=== PATIENT | female | born 1970 | race African-American/Black ===

== ENCOUNTER 2017-01-01 16:09 | Emergency (ER) | payer MEDICAID ==
[~2017-01-01] VITALS: Ht 162.6 cm; Wt 78.9 kg
[~2017-01-01 16:09] MED LIST: ALBUTEROL SULF8.5 GM INH; NORCO 5-325 TA1 EACH ORAL; PROMETHAZINE-C118 M1 ORAL
--- NOTE | 2017-01-01 16:41 | Emergency Room Report ---
History of Present Illness General Chief Complaint: Earache Source: Patient Present Illness HPI 46-year-old female presents to the emergency department complaining of cough, bilateral nasal congestion, left-sided ear pain which is 7/10 in severity with 7 /10 in severity sore throat x 2 days. Patient denies fevers or chills. Denies changes or loss of hearing, tinnitus, ear tenderness, or ear d/c. Patient presents with 2 grandchildren who were diagnosed with viral respiratory infection last week. She denies nausea, vomiting, neck pain or stiffness . Denies rashes or recent travel. Denies CP, Palpitations, LOC, AMS, dizziness, Changes in Vision, Sensation, paresthesias, or a sudden severe headache. Allergies: Coded Allergies: No Known Allergies (Unverified , 04/07/14) Patient History Past Medical History: see triage record Past Surgical History: none Pertinent Family History: none Last Menstrual Period: na Now: No Immunizations: UTD Reviewed Nursing Documentation: PMH: Agreed, PSxH: Agreed Nursing Documentation-PMH Past Medical History: No Stated History Review of Systems All Other Systems: negative except mentioned in HPI Physical Exam Vital Signs Date Time Temp Pulse Resp B/P (MAP) Pulse Ox O2 Delivery O2 Flow Rate FiO2 01/01/17 16:15 97.9 84 18 125/82 98 Room Air Sp02 EP Interpretation: reviewed, normal General Appearance: no apparent distress, alert, GCS 15, non-toxic Head: normocephalic, atraumatic Eyes: bilateral eye normal inspection, bilateral eye PERRL ENT: hearing grossly normal, no angioedema, normal voice, TMs + canals normal, uvula midline, moist mucus membranes, nasal congestion - bilaterally, other - cobble stone appearance to pharynx, no exudates. Neck: full range of motion, supple/symm/no masses Respiratory: chest non-tender, lungs clear, normal breath sounds, no rhonchi, no wheezing, speaking full sentences Cardiovascular #1: regular rate, rhythm, normal capillary refill Musculoskeletal: back normal, gait/station normal, normal range of motion, non- tender Neurologic: alert, oriented x3, responsive, motor strength/tone normal, sensory intact, speech normal Psychiatric: judgement/insight normal, memory normal, mood/affect normal Skin: normal color, no rash, warm/dry, well hydrated Lymphatic: no adenopathy Medical Decision Making PA Attestation Dr. Peña is my supervising Physician whom patient management has been discussed with. Diagnostic Impression: Primary Impression: URI (upper respiratory infection) Qualified Codes: J06.9 - Acute upper respiratory infection, unspecified; B97.89 - Other viral agents as the cause of diseases classified elsewhere Additional Impression: Nasal congestion ER Course 46-year-old female presents to the emergency department complaining of cough, bilateral nasal congestion, left-sided ear pain which is 7/10 in severity with 7 /10 in severity sore throat x 2 days. Patient denies fevers or chills. Denies changes or loss of hearing, tinnitus, ear tenderness, or ear d/c. Patient presents with 2 grandchildren who were diagnosed with viral respiratory infection last week. She denies nausea, vomiting, neck pain or stiffness . Denies rashes or recent travel. Denies CP, Palpitations, LOC, AMS, dizziness, Changes in Vision, Sensation, paresthesias, or a sudden severe headache. Ddx considered but are not limited to URI, pneumonia, PE, strep pharyngitis, meningitis. Vital signs: Pt. is afebrile, the remaining VS are WNL H&PE are most consistent with URI and nasal congestion - no evidence of bacterial infection ORDERS: none required at this time, the diagnosis is clinical ED INTERVENTIONS: None required at this time. --PT. EDUCATION: Discussed antibiotic resistance with inappropriate prescribing of antibiotics for viral illnesses. Discussed signs and symptoms to indicate viral illness versus bacterial illness. DISCHARGE: At this time pt. is stable for d/c to home. Will provide printed patient care instructions, and any necessary prescriptions. Care plan and follow up instructions have been discussed with the patient prior to discharge. Last Vital Signs Date Time Temp Pulse Resp B/P (MAP) Pulse Ox O2 Delivery O2 Flow Rate FiO2 01/01/17 16:15 97.9 84 18 125/82 98 Room Air Disposition: HOME, SELF-CARE Condition: Stable Scripts Acetaminophen* (TYLENOL EXTRA STRENGTH*) 500 Mg Tablet 500 MG ORAL Q6H, #20 TAB 0 Refills Prov: Lise Stacy P.A. 01/01/17 Oxymetazoline Hcl* (AFRIN*) 15 Ml Mist 2 SPRAYS NASAL TWICE A DAY for 3 Days, #15 ML 0 Refills Prov: StacyLise cohen 01/01/17 Patient Instructions: Upper Respiratory Infection, Adult Additional Instructions: Take medications as directed. Follow up with a Primary Care Provider in 3-5 days, even if your symptoms have resolved. --Please review list of primary care clinics, if you do not already have a primary care provider Return sooner to ED if new symptoms occur, or current symptoms become worse. - Please note that this Emergency Department Report was dictated using [employer] desktop support technician technology software, occasionally this can lead to erroneous entry secondary to interpretation by the dictation equipment. Lise Stacy Jan 01, 2017 16:41
[2017-01-01] MEDS ORDERED: TYLENOL EXTRA500 MG ORAL (17:01)
[2017-01-01] MEDS ORDERED: AFRIN15 ML NASAL (17:01)
[2017-01-01 17:22] VITALS: BP 103/69
== END 2017-01-01 17:22 | disposition home or self-care (01) ==
LOC: EMR 16:38
DX: J06.9 Acute upper respiratory infection, unspecified (principal); R09.81 Nasal congestion
CPT/HCPCS: 99284

== ENCOUNTER 2017-02-19 15:03 | Emergency (ER) | payer MEDICAID ==
[~2017-02-19] VITALS: Ht 162.6 cm; Wt 79.4 kg
[~2017-02-19 15:03] MED LIST changes: +AFRIN15 ML NASAL; +TYLENOL EXTRA500 MG ORAL
[2017-02-19 15:38] LABS: APPEARANCE,URINE CLOUDY; KETONES,URINE 1+ (NEGATIVE); LEUKOCYTE ESTERASE ,URINE 1+ (NEGATIVE); NITRITE,URINE NEGATIVE (NEGATIVE); PH,URINE 5 (4.5-8.0); PROTEIN,URINE 2+ (NEGATIVE); UROBILINOGEN,URINE NORMAL MG/DL (0.0-1.0)
[2017-02-19 16:12] LABS: BACTERIA,URINE FEW /HPF; SQUAMOUS EPITHELIAL CELL,UR MODERATE /LPF (NONE/OCC); WBC,URINE 0-2 /HPF (0 - 2)
[2017-02-19] MEDS ORDERED: METRONIDAZOLE500 MG ORAL (16:23)
[2017-02-19 16:24] VITALS: BP 122/74
[2017-02-19 16:35] VITALS: BP 120/66
--- NOTE | 2017-02-19 20:21 | Emergency Room Report ---
History of Present Illness General Chief Complaint: Female Urogenital Problems Source: Patient Present Illness [facility] The patient is a 46-year-old female presenting for vaginal discharge and foul odor for the past week. Described as a fishy odor. Discharge is a thin white discharge. She denies other symptoms including nausea, vomiting, fever, chills , dysuria, hematuria, abdominal pain Allergies: Coded Allergies: No Known Allergies (Unverified , 04/07/14) Patient History Past Medical History: see triage record Pertinent Family History: none Nursing Documentation-[facility] Past Medical History: No Stated History Review of Systems All Other Systems: negative except mentioned in HPI Physical Exam Vital Signs Date Time Temp Pulse Resp B/P (MAP) Pulse Ox O2 Delivery O2 Flow Rate FiO2 02/19/17 15:05 98.1 95 20 119/70 99 Room Air Sp02 EP Interpretation: reviewed, normal General Appearance: no apparent distress, alert, GCS 15, non-toxic Head: normocephalic, atraumatic Eyes: bilateral eye normal inspection, bilateral eye PERRL ENT: hearing grossly normal, normal pharynx, no angioedema, normal voice Gastrointestinal: normal bowel sounds, non tender, soft, non-distended, no guarding, no rebound Genitourinary: normal inspection, no CVA tenderness Musculoskeletal: back normal, gait/station normal, normal range of motion, non- tender Neurologic: alert, oriented x3, responsive, motor strength/tone normal, sensory intact, speech normal Psychiatric: judgement/insight normal, memory normal, mood/affect normal, no suicidal/homicidal ideation Skin: normal color, no rash, warm/dry, well hydrated Medical Decision Making PA Attestation Dr. Mcdowell is my supervising physician. Patient management was discussed with my supervising physician Diagnostic Impression: Primary Impression: Bacterial vaginosis ER Course The patient is a 46-year-old female presenting for vaginal discharge and foul odor for the past week. Described as a fishy odor. Discharge is a thin white discharge. She denies other symptoms including nausea, vomiting, fever, chills , dysuria, hematuria, abdominal pain Differential diagnosis considered but not limited to: UTI, vaginitis, pyelonephritis, pyelonephrosis, PID, ectopic PE: Vitals WNL. NAD. Abdomen: Normal appearance. Non distended. No ecchymosis. Normal BS. Non TTP. No McBurney point tenderness. No guarding. No CVA tenderness UA unremarkable. Neg preg Pt will be DC'ed home with prescription for flagyl and will FU with PMD. ER precautions given Laboratory Tests Test 02/19/17 15:27 Urine Color Yellow Urine Appearance Cloudy Urine pH 5 (4.5-8.0) Urine Specific [place] 1.025 (1.005-1.035) Urine Protein 2+ (NEGATIVE) H Urine Glucose (UA) Negative (NEGATIVE) Urine Ketones 1+ (NEGATIVE) H Urine Occult Blood 3+ (NEGATIVE) H Urine Nitrite Negative (NEGATIVE) Urine Bilirubin Negative (NEGATIVE) Urine Urobilinogen Normal MG/DL (0.0-1.0) Urine Leukocyte Esterase 1+ (NEGATIVE) H Urine RBC 2-4 /HPF (0 - 2) H Urine WBC 0-2 /HPF (0 - 2) Urine Squamous Epithelial Cells Moderate /LPF (NONE/OCC) H Urine Bacteria Few /HPF (NONE) Lab Results Impression Few bacteria, many squamous epithelial cells. Negative nitrites Last Vital Signs Date Time Temp Pulse Resp B/P (MAP) Pulse Ox O2 Delivery O2 Flow Rate FiO2 02/19/17 16:35 98.1 80 20 120/66 99 Room Air Status: improved Disposition: HOME, SELF-CARE Condition: Improved Scripts Metronidazole* (FLAGYL*) 500 Mg Tablet 500 MG ORAL Q12HR, #14 TAB Prov: PHOEBE AMADOR 02/19/17 Patient Instructions: Vaginitis Additional Instructions: I discussed my findings with the patient. All questions and concerns have been answered. Treatment and medication compliance have been addressed. I advised the patient that they need to follow up with PMD in 3-5 days. Return to ED if symptoms worsen, new symptoms arise, or if needed for any reason. Patient verbalized understanding of discharge instructions. PHOEBE AMADOR Feb 19, 2017 20:21
== END 2017-02-19 16:38 | disposition home or self-care (01) ==
LOC: EMR 15:25
DX: N76.0 Acute vaginitis (principal); B96.89 Other specified bacterial agents as the cause of diseases classified elsewhere
CPT/HCPCS: 81003; 99283

== ENCOUNTER 2018-07-01 15:53 | Emergency (ER) | payer MEDICAID ==
[~2018-07-01] VITALS: Ht 162.6 cm; Wt 91.6 kg
[~2018-07-01 15:53] MED LIST changes: +METRONIDAZOLE500 MG ORAL
--- NOTE | 2018-07-01 16:20 | NUR ---
ED Nurse Note: A/OX4. AMBULATED IN TO ER DUE TO HEADACHE X 1 WEEK WITH INCREASED CONGESTION. PAIN 5/10 AT THIS TIME. DENIES N/V AND BLURRY VISION, CP AND SOB.
[2018-07-01 16:25] VITALS: BP 135/71
[2018-07-01] MEDS ORDERED: Amoxicillin 250mg/5ml susp 150ml ORAL ONE (16:30)
[2018-07-01] MEDS ORDERED: Pseudoephedrine 30mg tab ORAL ONE (16:30)
--- NOTE | 2018-07-01 16:34 | Emergency Room Report ---
History of Present Illness General Chief Complaint: Headache Source: Patient Present Illness HPI Patient presents with one week of increased congestion and left ear pain. She felt feverish but didn't document a fever. Midweek she had increased pain in her head. There is a lot of congestion with some yellow material. She's felt like her left ear has not cleared since that time. She felt pressure in her face and also her sinuses. 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 There's been no nausea vomiting or diarrhea. She denies any vertigo but feels strange in her head. The pain in her head was worse midweek but now is 5/10. She was concerned that she might have hypertension or a stroke. No chest pain, dyspnea, wheezing, nausea, vomiting, diarrhea, dysuria, depression or skin rashes. Allergies: Coded Allergies: No Known Allergies (Unverified , 04/07/14) Patient History Past Medical History: see triage record Past Surgical History: hysterectomy Social History: Denies: smoking, alcohol use, drug use Social History Narrative from home Last Menstrual Period: hyst Now: No Reviewed Nursing Documentation: PMH: Agreed; PSxH: Agreed Nursing Documentation-PMH Past Medical History: No History, Except For Hx Gastrointestinal Problems: Yes Review of Systems All Other Systems: negative except mentioned in HPI Physical Exam Vital Signs Date Time Temp Pulse Resp B/P (MAP) Pulse Ox O2 Delivery O2 Flow Rate FiO2 07/01/18 16:09 97.9 78 20 117/75 98 Room Air Sp02 EP Interpretation: reviewed, normal General Appearance: well appearing, no apparent distress, GCS 15 Head: normocephalic Eyes: bilateral eye normal inspection, bilateral eye PERRL, bilateral eye EOMI ENT: no angioedema, normal voice, moist mucus membranes, other - nares swollen , turbanates swollen, L TM red, R normal Neck: supple Respiratory: lungs clear, normal breath sounds Cardiovascular #1: regular rate, rhythm Cardiovascular #2: 2+ radial (R) Gastrointestinal: normal inspection, normal bowel sounds, non tender, no mass, non-distended Musculoskeletal: back normal, gait/station normal, normal range of motion Neurologic: alert, oriented x3, dry end tester III-XII nml as tested, motor strength/tone normal, DTRs symmetric, sensory intact, cerebellar normal, normal gait, speech normal Psychiatric: mood/affect normal Skin: normal inspection, warm/dry Medical Decision Making Diagnostic Impression: Primary Impression: Otitis media Qualified Codes: H66.002 - Acute suppurative otitis media without spontaneous rupture of ear drum, left ear Additional Impressions: Sinusitis Qualified Codes: J01.00 - Acute maxillary sinusitis, unspecified Sinus headache ER Course Patient with headache left ear pain and sinus fullness. Differential includes sinusitis, sinus headache, vertigo, otitis media amongst others. Based on her physical exam she appears to have otitis media. Antibiotic's are indicated as well as a decongestant. Her blood pressure is stable and she does not need treatment for this. No further workup is indicated. Her neurologic exam is normal and a CT of the head is not indicated at this time. Patient is stable for outpatient observation and treatment. Last Vital Signs Date Time Temp Pulse Resp B/P (MAP) Pulse Ox O2 Delivery O2 Flow Rate FiO2 07/01/18 16:49 97.9 71 13 119/70 99 Room Air Status: improved Disposition: HOME, SELF-CARE Condition: Improved Scripts Chlorpheniramine Maleate (CHLOR-TRIMETON) 4 Mg Tablet 4 MG PO Q6HR, #14 TAB Prov: Greg Vance MD 07/01/18 Amoxicillin* (AMOXIL*) 500 Mg Capsule 500 MG ORAL THREE TIMES A DAY, #21 CAP Prov: Greg Vance MD 07/01/18 Greg Vance MD Jul 01, 2018 16:34
[2018-07-01] MEDS ORDERED: AMOXICILLIN500 MG ORAL (16:37)
[2018-07-01] MEDS ORDERED: CHLOR-TRIMETON4 MG PO (16:37)
[2018-07-01 16:49] VITALS: BP 119/70
--- NOTE | 2018-07-01 16:50 | NUR ---
ED Nurse Note: Pt cleared by health care Provider for discharge. DC instructions/prescription was given and explained to pt and verbalized understanding of teachings. All medical deviecs such as ID band removed. Pt is AAO x4, ambulatory and left with all personal belongings.
== END 2018-07-01 16:49 | disposition home or self-care (01) ==
LOC: EMR 16:33
DX: H66.92 Otitis media, unspecified, left ear (principal); J32.9 Chronic sinusitis, unspecified; R51 Headache
CPT/HCPCS: 99282

== ENCOUNTER 2018-10-11 10:32 | Emergency (ER) | payer MEDICAID ==
[~2018-10-11] VITALS: Ht 162.6 cm; Wt 93.9 kg
[~2018-10-11 10:32] MED LIST changes: +AMOXICILLIN500 MG ORAL; +CHLOR-TRIMETON4 MG PO
[2018-10-11 10:44] VITALS: BP 122/79
[2018-10-11] MEDS ORDERED: NKM (10:49)
--- NOTE | 2018-10-11 10:53 | NUR ---
ED Nurse Note: Pt. AAOx4. Ambulatory. pt. c/o nosebleed and swelling in the left ear and mouth; patient has been feeling 'foreign body sensation in the left ear/sinus' x 5 months; seen by dentist and ENT.
[2018-10-11] MEDS ORDERED: PREDNISONE20 MG ORAL (11:58)
[2018-10-11] MEDS ORDERED: AUGMENTIN 875-1 EAC1 ORAL (11:58)
--- NOTE | 2018-10-11 12:15 | NUR ---
ER DISCHARGE NOTE: Patient is being discharged from medical care. Awake, alert and oriented x4. After care instructions, including prescriptions were given. Patient verbalized understanding of After care instructions. All medical devices such as ID band were removed. Patient ambulated out with all personal belongings with steady gait.
--- NOTE | 2018-10-11 12:15 | NUR ---
Note unique in EDM - 10/11/18 at 1324 by CHARLES ED Nurse Note: Patient is being discharged from medical care. Awake, alert and oriented x5. After care instructions, including prescriptions were given. Patient verbalized understanding of After care instructions. All medical devices such as ID band were removed. Patient ambulated out with all personal belongings with steady gait.
--- NOTE | 2018-10-14 07:06 | Emergency Room Report ---
History of Present Illness General Chief Complaint: Foreign Body Source: Patient Present Illness HPI 47-year-old female presents ED for evaluation. Patient walked in complaining of fullness in left ear. States she has had the symptoms for the last several months. Has seen seen here previously for similar complaint and states her symptoms resolved with medication. Has been seen by her ENT and was told that everything is okay. Denies any pain. Denies any fevers or chills. Denies cough. Denies any change in hearing. No other aggravating or relieving factors. Denies any other associated symptoms Allergies: Coded Allergies: No Known Allergies (Unverified , 04/07/14) Patient History Past Medical History: GERD Past Surgical History: none Pertinent Family History: none Social History: Denies: smoking, alcohol use, drug use Last Menstrual Period: hystrectomy Now: No Immunizations: UTD Reviewed Nursing Documentation: PMH: Agreed; PSxH: Agreed Nursing Documentation-PMH Past Medical History: No History, Except For Hx Gastrointestinal Problems: Yes Review of Systems All Other Systems: negative except mentioned in HPI Physical Exam Vital Signs Date Time Temp Pulse Resp B/P (MAP) Pulse Ox O2 Delivery O2 Flow Rate FiO2 10/11/18 10:44 97.7 68 18 122/79 95 Room Air Sp02 EP Interpretation: reviewed, normal General Appearance: no apparent distress, alert, GCS 15, non-toxic Head: normocephalic Eyes: bilateral eye normal inspection, bilateral eye PERRL ENT: hearing grossly normal, normal pharynx, no angioedema, normal voice, other - bilateral TM cloudy, with effusion noted Neck: full range of motion, supple, no meningismus, supple/symm/no masses Respiratory: chest non-tender, lungs clear, normal breath sounds, speaking full sentences Cardiovascular #1: normal inspection Gastrointestinal: normal inspection Rectal: deferred Genitourinary: no CVA tenderness Musculoskeletal: normal inspection Neurologic: alert, oriented x3, responsive, motor strength/tone normal, sensory intact, speech normal Psychiatric: normal inspection, judgement/insight normal Skin: normal color Lymphatic: normal inspection Medical Decision Making Diagnostic Impression: Primary Impression: Otitis media Qualified Codes: H66.90 - Otitis media, unspecified, unspecified ear ER Course Hospital Course 47-year-old F presents to ED with fullness L ear Differential diagnoses include: TM perforation, otitis externa, otitis media Clinical course Patient placed on stretcher. After initial history, physical exam reveals female in no acute distress. bilateral TM cloudy with effusion. Remainder of exam unremarkable. Discussed findings with patient. It appears her symptoms are recurrent as she has been here previously for similar presentation. We will prescribe antibiotics as well as steroids. However I do encourage ENT follow-up. I will provide her with ENT referrals Diagnosis - otitis media Stable and discharged to home with Rx augmentin, prednisone. Followup with PMD/ ENT. Return to ED if symptoms recur or worsen Last Vital Signs Date Time Temp Pulse Resp B/P (MAP) Pulse Ox O2 Delivery O2 Flow Rate FiO2 10/11/18 10:44 97.7 68 18 122/79 (93) 95 Room Air Status: improved Disposition: HOME, SELF-CARE Condition: Stable Scripts Prednisone* (PREDNISONE*) 20 Mg Tablet 40 MG ORAL DAILY, #10 TAB Prov: Hesham Dinh MD 10/11/18 Amoxicillin/Potassium Clav 875-125* (AUGMENTIN 875-125 TABLET*) 1 Each Tablet 1 TAB ORAL TWICE A DAY, #14 TAB Prov: Hesham Dinh MD 10/11/18 Referrals: Claudine Espino MD Patient Instructions: Otitis Media With Effusion Hesham Dinh MD Oct 14, 2018 07:06
== END 2018-10-11 12:15 | disposition home or self-care (01) ==
LOC: EMR 11:30
DX: H66.90 Otitis media, unspecified, unspecified ear (principal); K21.9 Gastro-esophageal reflux disease without esophagitis
CPT/HCPCS: 99282